=== PATIENT | female | born 1980 | race Caucasian/White ===

== ENCOUNTER 2020-03-01 16:08 | Emergency (ER) | payer SELFPAY ==
[~2020-03-01] VITALS: Ht 152.4 cm; Wt 117.9 kg
[~2020-03-01 16:08] MED LIST: ACET325; ALBU90I INH; ALBU90OI INH; AMIT25; AMOX500 PO; AMOX875 PO; BENZ100A PO; CEPH500 PO; CODGUAEL PO; CYCL10 PO; Cyclobenzaprine5 MG PO; DIAZ5 PO; DOXY100 PO; ETHINYL ESTRADIOL; EXCEDRIN; FAMO20 PO; HYDACE5; HYDACE5 PO; HYDGUAL120 PO; HYDROCODONE CO PO; IBUP800 PO; LEVONORGESTREL; MEDR150I; METPRE4DP PO; NAPR500 PO; NEOCOLOTSU OT; Norco 5-325 Ta1 EACH PO; ORTHOTRICYCLIN; OXAP600 PO; OXYACE5T PO; PENVK500 PO; PRED10 PO; PRED20 PO; PROM25 PO; PROP40; PSEHYDGUAL PO; Prednisone20 MG PO; RXAMOX500 PO; RXHYDACE PO; RXHYDGUAS PO; RXSULTRIDS PO; SULTRIDS PO; TOPI25; TRAACE PO; VERA120ER; [UNRECOGNIZED DRUG - OTHER]
[2020-03-01] MEDS ORDERED: Prednisone20 MG PO (17:33)
== END 2020-03-01 17:40 | disposition home or self-care (01) ==
LOC: ER 16:08
DX: J40 Bronchitis, not specified as acute or chronic (principal); H65.02 Acute serous otitis media, left ear; Z88.5 Allergy status to narcotic agent; Z79.52 Long term (current) use of systemic steroids
CPT/HCPCS: 71046; 99283-25

== ENCOUNTER 2020-04-25 16:31 | Emergency (ER) | payer SELFPAY ==
[~2020-04-25] VITALS: Ht 152.4 cm; Wt 113.4 kg
[2020-04-25 21:24] LABS: BASOPHILS ABSOLUTE AUTO 0.09 K/mm3 (0.00-0.23); BASOPHILS PERCENT AUTO 1 % (0-2); EOSINOPHILS ABSOLUTE AUTO 0.01 K/mm3 (0.00-0.68); EOSINOPHILS PERCENT AUTO 0 % (0-6); Hematocrit 37.5 % (33.0-51.0); Hemoglobin 12.4 g/dL (11.5-16.0); IMMATURE GRAN ABSOLUTE AUTO 0.95 K/mm3 (0.00-0.10); IMMATURE GRAN PERCENT AUTO 5 % (0-1); LYMPHOCYTES ABSOLUTE AUTO 2.15 K/mm3 (0.84-5.20); LYMPHOCYTES PERCENT AUTO 12 % (21-46); MONOCYTES ABSOLUTE AUTO 0.62 K/mm3 (0.16-1.47); MONOCYTES PERCENT AUTO 3 % (4-13); Mean Corpuscular HGB 28.8 pg (26.0-34.0); Mean Corpuscular HGB Conc 33.1 g/dL (31.5-36.5); Mean Corpuscular Volume 87 fL (80-100); Mean Platelet Volume 9.8 fL (9.1-12.4); NEUTROPHILS PERCENT AUTO 79 % (41-73); Platelet Count 275 K/mm3 (150-400); RDW Coefficient Variation 13.6 % (11.7-14.2); RDW Standard Deviation 43.4 fL (35.1-46.3); White Blood Cell Count 18.32 K/mm3 (4.00-11.30)
[2020-04-25 21:40] LABS: BAND PERCENT MAN 5 % (0-8); BASOPHILS PERCENT MAN 0 % (0-2); EOSINOPHILS PERCENT MAN 0 % (0-6); LYMPHOCYTES ABSOLUTE MAN 2.74 K/mm3 (0.84-5.20); LYMPHOCYTES PERCENT MAN 15 % (21-46); MONOCYTES ABSOLUTE MAN 0.54 K/mm3 (0.16-1.47); MONOCYTES PERCENT MAN 3 % (4-13); NEUTROPHILS ABSOLUTE MAN 15.02 K/mm3 (1.96-9.15); SEG NEUTROPHILS PERCENT MAN 77 % (41-73); TOTAL CELLS COUNTED 100
[2020-04-25 21:42] LABS: Alanine Aminotransfer (ALT/SGP 63 U/L (12-78); Albumin, Blood 2.9 g/dL (3.4-5.0); Albumin/Globulin Ratio 0.6 (0.8-1.8); Alk Phos 305 U/L (50-136); Anion Gap 11 mmol/L (6-16); Aspartate Aminotrans (AST/SGOT 69 U/L (12-37); Bilirubin, Total 0.9 mg/dL (0.1-1.0); Blood Urea Nitrogen 7 mg/dL (8-24); Bun/Creatinine Ratio 10.6 (12.0-20.0); CO2, Blood 23 mmol/L (21-32); Calcium, Blood 8.9 mg/dL (8.5-10.1); Chloride, Blood 103 mmol/L (98-108); Creatinine, Blood 0.66 mg/dL (0.40-1.00); Globulin, Blood 4.9 g/dL (2.2-4.0); Glomerular Filtration Rate >60 (60-); Glucose, Blood 102 mg/dL (70-99); Potassium, Blood 3.2 mmol/L (3.5-5.5); Sodium, Blood 137 mmol/L (136-145); Total Protein, Blood 7.8 g/dL (6.4-8.2)
[2020-04-25] MEDS ORDERED: AZIT250 PO (22:01)
== END 2020-04-25 23:15 | disposition home or self-care (01) ==
LOC: ER 16:31
PROVIDERS: Emergency Medicine
DX: H65.23 Chronic serous otitis media, bilateral (principal); R05 Cough; M79.10 Myalgia, unspecified site; R51 Headache; D72.829 Elevated white blood cell count, unspecified; Z20.828 Contact with and (suspected) exposure to other viral communicable diseases; Z88.5 Allergy status to narcotic agent
CPT/HCPCS: 36415; 71045; 80053; 85025; 96361; 96374; 96375; 99283-25; J1200; J1885; J7030

== ENCOUNTER 2020-05-23 12:23 | Emergency (ER) | payer SELFPAY ==
[~2020-05-23] VITALS: Ht 152.4 cm; Wt 113.4 kg
[~2020-05-23 12:23] MED LIST changes: +AZIT250 PO
[2020-05-23] MEDS ORDERED: Robaxin-750750 MG PO (16:00)
== END 2020-05-23 16:15 | disposition home or self-care (01) ==
LOC: ER 12:23
DX: S46.911A Strain of unspecified muscle, fascia and tendon at shoulder and upper arm level, right arm, initial encounter (principal); X58.XXXA Exposure to other specified factors, initial encounter; Z88.5 Allergy status to narcotic agent
CPT/HCPCS: 73030; 99283-25

== ENCOUNTER 2020-05-31 14:34 | Inpatient (IN) | payer SELFPAY ==
[~2020-05-31] VITALS: Ht 152.4 cm; Wt 99.9 kg
[~2020-05-31 14:34] MED LIST changes: +Robaxin-750750 MG PO
[2020-05-31 15:38] LABS: Hematocrit 27.7 % (33.0-51.0); Hemoglobin 9.4 g/dL (11.5-16.0); Mean Corpuscular HGB 27.8 pg (26.0-34.0); Mean Corpuscular HGB Conc 33.9 g/dL (31.5-36.5); Mean Corpuscular Volume 82 fL (80-100); Mean Platelet Volume 12.4 fL (9.1-12.4); Platelet Count 76 K/mm3 (150-400); RDW Coefficient Variation 14.7 % (11.7-14.2); RDW Standard Deviation 44.1 fL (35.1-46.3); Red Blood Cell Count 3.38 M/mm3 (3.80-5.20); White Blood Cell Count 17.38 K/mm3 (4.00-11.30)
[2020-05-31 15:51] LABS: International Normalized Ratio 1.07; Prothrombin Time Results 11.4 Sec (9.7-11.5)
[2020-05-31 15:57] LABS: Albumin, Blood 1.7 g/dL (3.4-5.0); Albumin/Globulin Ratio 0.3 (0.8-1.8); Bilirubin, Total 0.8 mg/dL (0.1-1.0); Calcium, Blood 8.4 mg/dL (8.5-10.1); Creatinine, Blood 1.23 mg/dL (0.40-1.00); Globulin, Blood 5.9 g/dL (2.2-4.0); Potassium, Blood 3.2 mmol/L (3.5-5.5); Total Protein, Blood 7.6 g/dL (6.4-8.2)
[2020-05-31 15:59] LABS: BAND PERCENT MAN 5 % (0-8); BASOPHILS PERCENT MAN 0 % (0-2); EOSINOPHILS PERCENT MAN 0 % (0-6); LYMPHOCYTES PERCENT MAN 6 % (21-46); MONOCYTES PERCENT MAN 6 % (4-13); SEG NEUTROPHILS PERCENT MAN 83 % (41-73); TOTAL CELLS COUNTED 100
[2020-05-31 16:00] LABS: EOSINOPHILS PERCENT AUTO 0 % (0-6); IMMATURE GRAN ABSOLUTE AUTO 0.64 K/mm3 (0.00-0.10); IMMATURE GRAN PERCENT AUTO 4 % (0-1); NEUTROPHILS ABSOLUTE AUTO 14.71 K/mm3 (1.96-9.15); NEUTROPHILS PERCENT AUTO 85 % (41-73)
[2020-05-31 23:48] LABS: Influenza A Negative (NEGATIVE); Influenza B Negative (NEGATIVE)
[2020-06-01 03:01] LABS: Hematocrit 24.9 % (33.0-51.0); Hemoglobin 8.1 g/dL (11.5-16.0); Mean Corpuscular HGB 27.5 pg (26.0-34.0); Mean Corpuscular HGB Conc 32.5 g/dL (31.5-36.5); Mean Corpuscular Volume 84 fL (80-100); Platelet Count 56 K/mm3 (150-400); RDW Coefficient Variation 15.2 % (11.7-14.2); RDW Standard Deviation 47.5 fL (35.1-46.3); Red Blood Cell Count 2.95 M/mm3 (3.80-5.20); White Blood Cell Count 13.04 K/mm3 (4.00-11.30)
--- NOTE | 2020-06-01 03:21 | NUR ---
PT SHOWED DIZZINESS WHILE AMBULATING TO BATHROOM, NURSE NOTIFIED.
[2020-06-01 03:27] LABS: BAND PERCENT MAN 16 % (0-8); BASOPHILS PERCENT MAN 0 % (0-2); EOSINOPHILS ABSOLUTE MAN 0.13 K/mm3 (0.00-0.68); EOSINOPHILS PERCENT MAN 1 % (0-6); LYMPHOCYTES ABSOLUTE MAN 0.39 K/mm3 (0.84-5.20); LYMPHOCYTES PERCENT MAN 3 % (21-46); METAMYELOCYTE ABSOLUTE MAN 0.13 K/mm3 (0.00-0.00); METAMYELOCYTE PERCENT MAN 1 % (0-0); MONOCYTES ABSOLUTE MAN 0.13 K/mm3 (0.16-1.47); MONOCYTES PERCENT MAN 1 % (4-13); NEUTROPHILS ABSOLUTE MAN 12.25 K/mm3 (1.96-9.15); SEG NEUTROPHILS PERCENT MAN 78 % (41-73); TOTAL CELLS COUNTED 100
[2020-06-01 03:43] LABS: Albumin, Blood 1.4 g/dL (3.4-5.0); Albumin/Globulin Ratio 0.3 (0.8-1.8); Bilirubin, Total 0.9 mg/dL (0.1-1.0); Bun/Creatinine Ratio 20.7 (12.0-20.0); Calcium, Blood 7.5 mg/dL (8.5-10.1); Creatinine, Blood 1.69 mg/dL (0.40-1.00); Globulin, Blood 4.7 g/dL (2.2-4.0); Total Protein, Blood 6.1 g/dL (6.4-8.2)
[2020-06-01 03:51] LABS: Percent Saturation 13.4 % (15.0-50.0)
[2020-06-01 05:03] LABS: Adenovirus Not Detected (NOT DETECT); Bordetella pertussis Not Detected (NOT DETECT); Chlamydophila pneumoniae Not Detected (NOT DETECT); Coronavirus 229E Not Detected (NOT DETECT); Coronavirus HKU1 Not Detected (NOT DETECT); Coronavirus NL63 Not Detected (NOT DETECT); Coronavirus OC43 Not Detected (NOT DETECT); Human Metapneumovirus Not Detected (NOT DETECT); Human Rhinovirus/Enterovirus Not Detected (NOT DETECT); Influenza A/2009-H1 Not Detected (NOT DETECT); Influenza A/H1 Not Detected (NOT DETECT); Influenza A/H3 Not Detected (NOT DETECT); Influenza B Not Detected (NOT DETECT); Mycoplasma pneumoniae Not Detected (NOT DETECT); Parainfluenza Virus 1 Not Detected (NOT DETECT); Parainfluenza Virus 2 Not Detected (NOT DETECT); Parainfluenza Virus 3 Not Detected (NOT DETECT); Parainfluenza Virus 4 Not Detected (NOT DETECT); Respiratory Syncytial Virus Not Detected (NOT DETECT); SARS-Cov-2 (COVID-19), BioFire Not Detected (NOT DETECT)
--- NOTE | 2020-06-01 05:48 | NUR ---
PCU ADMIT / SHIFT SUMMARY PT BROUGHT TO PCU-08 BY KENDRA FROM ER @ APPROX 0200, ACCOMPANIED BY PT SPOUSE. PT A&O X4, ABLE TO STAND & WEAKLY PIVOT TRANSFER FROM [facility] TO [facility] BED. PT VSS. SPO2 > 92% ON RA. MONITOR SHOWING ST, HR 100-110's. PT SWEATING PROFUSELY. ORAL TEMP WNL. PT C/O NOT FEELING WELL & PT SPOUSE REPORTS PT HASN'T EATEN ANYTHING IN 14 DAYS EXCEPT A COUPLE BITES OF SOUP 2 DAYS AGO. PT ARRIVED TO UNIT W/ XIE CATHETER INSERTED IN ER. ER NURSE REPORTS UA NOT COLLECTED & SENT D/T NOT ENOUGH URINE OUTPUT IN BAG. XIE CATHETER LINE NOTED TO ONLY HAVE DROPLETS, W/ NOT ENOUGH TO COLLECT. XIE CATH CLAMPED CLOSE TO PT FOR SPECIMEN COLLECTION W/ NO SUCCESS. PT C/O PAIN FROM XIE POSITIONING. XIE CATH REMOVED D/T PT COMPLAINT & NO COLLECTION OF URINE. PT UNSURE OF URINE OUTPUT AT HOME. PT REPORTS "I HAVEN'T BEEN DRINKING MUCH. I THINK I PEED BEFORE COMING HERE." PT DENIES NEED TO PEE, BUT ASSISTED TO BEDSIDE COMMODE FOR URINATION ATTEMPT. PT REPORTING "I FEEL LIKE I MAYBE COULD, BUT IT JUST WON'T COME." PT UNSUCCESSFUL. BLADDER SCAN DONE, SHOWING < 150 MLS. NS GTT INFUSING PER ORDERS. WILL CONTINUE TO MONITOR & PROVIDE CARE UNTIL REPORT OFF TO DAY SHIFT RN.
--- NOTE | 2020-06-01 06:21 | NUR ---
POSITIVE BLOOD CX's / CALL TO MD CALL TO MD PACHECO TO REPORT (+) BLOOD CX RESULTS X2. MD W/ NEW ORDERS FOR IV VANCO & PHARMACY TO MANAGE.
--- NOTE | 2020-06-01 09:28 | NUR ---
PLACED SCD'S TO BLE. REMOVED PIV FROM LUE PATIENT COMPLAINED OF TENDERNESS UPON FLUSHING. PATIENT DENIES PAIN. SHE IS RESTING IN BED. WILL CONTINUE TO MONITOR AND PROVIDE CARE NEEDED.
--- NOTE | 2020-06-01 13:07 | NUR ---
NO CHANGES ON PATIENT NOTED FROM THIS MORNINGS ASSESSMENT. PATIENT CONTINUES TO REST IN BED. STOOL SPECIMEN COLLECTED PER ORDERS AND SENT TO LAB. WILL CONTINUE TO MONITOR AND PROVIDE CARE NEEDED.
[2020-06-01 13:41] LABS: Stool Occult Blood Guaiac 1 Neg (Neg)
--- NOTE | 2020-06-01 15:40 | NUR ---
PATIENT NOTED TO HAVE NO NEW CHANGES FROM LAST ASSESSMENT. UA COLLECTED AND SENT TO LAB. IS AT BEDSIDE. WILL CONTINUE TO MONITOR AND PROVIDE CARE NEEDED.
--- NOTE | 2020-06-01 17:26 | NUR ---
PATIENT APPEARS THOUGH SHE IS FEELING SLIGHTLY BETTER THAN IN THE BEGINNING OF THIS SHIFT. VITALS HAVE BEEN STABLE. PATIENT CONTINUES ON IV ABX WITHOUT S/SX OF ADVERSE REACTIONS NOTED OR REPORTED. CALLS APPROPRIATELY FOR STAFF ASSIST NEEDED. PLEASANT AND COOPERATIVE WITH STAFF AND CARE PROVIDED. STILL WITH MINIMAL URINE OUTPUT. PATIENT RECEIVING IV FLUIDS PER ORDERS AND IS BEING REMINDED TO TAKE PO FLUIDS WELL. PATIENT IN ROOM RESTING AT THIS TIME. WILL CONTINUE TO MONITOR AND PROVIDE CARE NEEDED.
[2020-06-01 17:32] LABS: Source, Urine Voided
[2020-06-01 17:36] LABS: Appearance, Urine Cloudy (Clear); Bilirubin, Urine Neg (Neg); Blood, Urine 5+ (Neg); Color, Urine Yellow (P-Yellow); Glucose Qualitative, Urine Neg (Neg); Ketones, Urine 1+ (Neg); Leukocyte Esterase, Urine 1+ (Neg); Nitrite, Urine Neg (Neg); Protein, Urine 3+ (Neg); Specific Gravity, Urine 1.015 (1.003-1.022); Urobilinogen, Urine 1+ (Normal)
[2020-06-01 18:29] LABS: Squamous Epithelial Cells Mod /hpf (Few)
[2020-06-01 18:30] LABS: Amorphous Light (0-Heavy); Bacteria Mod /hpf
--- NOTE | 2020-06-01 19:09 | NUR ---
BEDSIDE REPORT GIVEN TO BESSY RN @ [id number]. PATIENT IS DOING WELL AND HAS NO NEEDS AT THIS TIME. BESSY TO ASSUME PATIENTS CARE AT THIS TIME.
[2020-06-02 04:01] LABS: BASOPHILS ABSOLUTE AUTO 0.06 K/mm3 (0.00-0.23); BASOPHILS PERCENT AUTO 0 % (0-2); Hematocrit 26.1 % (33.0-51.0); Hemoglobin 8.6 g/dL (11.5-16.0); LYMPHOCYTES ABSOLUTE AUTO 1.83 K/mm3 (0.84-5.20); LYMPHOCYTES PERCENT AUTO 13 % (21-46); MONOCYTES ABSOLUTE AUTO 1.23 K/mm3 (0.16-1.47); MONOCYTES PERCENT AUTO 9 % (4-13); Mean Corpuscular HGB 27.5 pg (26.0-34.0); Mean Corpuscular Volume 83 fL (80-100); RDW Coefficient Variation 15.7 % (11.7-14.2); RDW Standard Deviation 47.1 fL (35.1-46.3); Red Blood Cell Count 3.13 M/mm3 (3.80-5.20); White Blood Cell Count 14.36 K/mm3 (4.00-11.30)
[2020-06-02 04:07] LABS: EOSINOPHILS ABSOLUTE AUTO 0.05 K/mm3 (0.00-0.68); EOSINOPHILS PERCENT AUTO 0 % (0-6); IMMATURE GRAN ABSOLUTE AUTO 0.54 K/mm3 (0.00-0.10); IMMATURE GRAN PERCENT AUTO 4 % (0-1); Mean Platelet Volume 13.8 fL (9.1-12.4); NEUTROPHILS ABSOLUTE AUTO 10.65 K/mm3 (1.96-9.15); NEUTROPHILS PERCENT AUTO 74 % (41-73)
[2020-06-02 04:08] LABS: Platelet Count 39 K/mm3 (150-400)
[2020-06-02 04:21] LABS: Albumin, Blood 1.3 g/dL (3.4-5.0); Albumin/Globulin Ratio 0.3 (0.8-1.8); Bilirubin, Total 0.5 mg/dL (0.1-1.0); Bun/Creatinine Ratio 21.2 (12.0-20.0); Calcium, Blood 7.6 mg/dL (8.5-10.1); Creatinine, Blood 1.89 mg/dL (0.40-1.00); Globulin, Blood 5.1 g/dL (2.2-4.0); Total Protein, Blood 6.4 g/dL (6.4-8.2)
[2020-06-02 04:23] LABS: BAND PERCENT MAN 5 % (0-8); BASOPHILS ABSOLUTE MAN 0.14 K/mm3 (0.00-0.23); BASOPHILS PERCENT MAN 1 % (0-2); EOSINOPHILS PERCENT MAN 0 % (0-6); LYMPHOCYTES ABSOLUTE MAN 1.43 K/mm3 (0.84-5.20); LYMPHOCYTES PERCENT MAN 10 % (21-46); METAMYELOCYTE ABSOLUTE MAN 0.14 K/mm3 (0.00-0.00); METAMYELOCYTE PERCENT MAN 1 % (0-0); MONOCYTES ABSOLUTE MAN 0.28 K/mm3 (0.16-1.47); MONOCYTES PERCENT MAN 2 % (4-13); NEUTROPHILS ABSOLUTE MAN 12.34 K/mm3 (1.96-9.15); SEG NEUTROPHILS PERCENT MAN 81 % (41-73); TOTAL CELLS COUNTED 100
--- NOTE | 2020-06-02 06:30 | NUR ---
SHIFT SUMMARY. ASSUMED CARE AT 1900. JUST GETTING OUT OF SHOWER W/ HUSBANDS HELP. VERY LITTLE MOTIVATION TO DO THINGS FOR SELF WHILE HERE TO DO THING FOR HER. SCDS ON AND TOLERATED. ENC TO DEEP BREATHE AND LUNGS CLEAR. SR. DENIES PAIN . SOME RIB SORENESS REPORTED FROM DAYS OF COUGHING. REPORTS SHE THIS BRONCHITIS TWICE A YEAR. WITH TALKING PROMOTES MUCH COUGHING AND VERY BARKY WHEEZY CROUPY COUGH. VERY HOARSE TO TALK . AFTER 2099 COUGH MED SLEPT VERY WELL AND VOIDED X ONE IN BR . PER TECH. MORE COUGHING WHEN AWAKENED FOR LAB . PLACED CALL TO MD WHEN LAB RESULTS REPORTED AND ORDERS LEFT . REPORTED COUGHING AND MD DID NOT ORDER COUGH MED. PLACED CALL LATER AND COUGH ERASMO ORDER AND LATER REALIZED ALLERGY TO CODEINE. WHEN QUESTIONED MANY TIMES ABOUT THE NEED TO VOID AND SHE CONT TO SAY NO . DECIDED TO DO BLADDER SCAN SINCE UNSURE OF URINE OUT PUT UNMEASURED X1. 180 ML IN SCAN. THEN REALIZED SHE HAD A BRIEF ON, AND SHE HAD NEVER ASKED FOR IT TO BE CHANGED, MORE VOIDING UNMEASURED. VERY HOARSE NOW AND REPORT TO PRAVIN COSTELLO RN ABOUT CODEINE ALLERGY AND NEED TO GET ANOTHER ORDER FROM DAY MD. LUNGS REMAIN CLEAR. THIS SHIFT..
--- NOTE | 2020-06-02 08:40 | NUR ---
pt layingn in bed awake a/ox3, coopertive with care, follows commands well, states she got a little sleep last night, denies pain, is asking for something for her cough, she has a harsh cough reports bringing up clear sputum, hrr, tele in place running sr per montior, see strip, no edema noted, ppp+2, cap refill <3sec, vs stable, afebrile, iv site to rfa is clear and patent, btx4, abd flat soft nontender, voids without diff, has attends in place for stress incont, skin c/w/d, la tiwari, call light in reach.
--- NOTE | 2020-06-02 12:04 | NUR ---
Echocardiogram completed.
--- NOTE | 2020-06-02 17:55 | NUR ---
pt is having a picc line placed, she was started on gabapenten for her cough, no other changes this shift. call light in reach.
--- NOTE | 2020-06-02 19:15 | NUR ---
ASSUMED CARE OF PT, REPORT RECEIVED FROM HARRY MORENO. PT SITTING UP IN BED, TALKING ON CELLPHONE. NO ACUTE DISTRESS OBSERVED, PT DOES HAVE SHALLOW BREATHING. SATS 95% ON RA. CALL LIGHT WITHIN REACH, WILL CONTINUE TO MONITOR
--- NOTE | 2020-06-03 01:00 | NUR ---
DAYLIGHT SAVINGS TIME IN EFFECT, TIME CHANGE BACK 1 HR
[2020-06-03 01:08] LABS: U Amphetamine Screen Not Detected; U Barbituate Screen Not Detected; U Benzodiazapine Screen Not Detected; U Buprenorphine Screen Not Detected; U Cannabinoids Screen Not Detected; U Cocaine Screen Not Detected; U Methadone Screen Not Detected; U Methamphetamine Screen Not Detected; U Opiates Screen Not Detected; U Oxycodone Screen Not Detected; U Phencyclidine Screen Not Detected; U Propoxyphene Screen Not Detected
[2020-06-03 07:21] LABS: BASOPHILS ABSOLUTE AUTO 0.02 K/mm3 (0.00-0.23); BASOPHILS PERCENT AUTO 0 % (0-2); EOSINOPHILS ABSOLUTE AUTO 0.04 K/mm3 (0.00-0.68); EOSINOPHILS PERCENT AUTO 0 % (0-6); Hematocrit 21.9 % (33.0-51.0); Hemoglobin 7.1 g/dL (11.5-16.0); IMMATURE GRAN ABSOLUTE AUTO 0.41 K/mm3 (0.00-0.10); IMMATURE GRAN PERCENT AUTO 3 % (0-1); LYMPHOCYTES PERCENT AUTO 13 % (21-46); MONOCYTES ABSOLUTE AUTO 0.74 K/mm3 (0.16-1.47); MONOCYTES PERCENT AUTO 6 % (4-13); Mean Corpuscular HGB 27.5 pg (26.0-34.0); Mean Corpuscular HGB Conc 32.4 g/dL (31.5-36.5); Mean Corpuscular Volume 85 fL (80-100); Mean Platelet Volume 12.6 fL (9.1-12.4); NEUTROPHILS ABSOLUTE AUTO 9.96 K/mm3 (1.96-9.15); NEUTROPHILS PERCENT AUTO 78 % (41-73); RDW Coefficient Variation 15.9 % (11.7-14.2); RDW Standard Deviation 48.8 fL (35.1-46.3); Red Blood Cell Count 2.58 M/mm3 (3.80-5.20); White Blood Cell Count 12.77 K/mm3 (4.00-11.30)
[2020-06-03 07:25] LABS: Platelet Count 50 K/mm3 (150-400)
[2020-06-03 07:44] LABS: Magnesium, Blood 2.2 mg/dL (1.6-2.4)
[2020-06-03 07:45] LABS: Alanine Aminotransfer (ALT/SGP 16 U/L (12-78); Albumin, Blood 1.9 g/dL (3.4-5.0); Albumin/Globulin Ratio 0.4 (0.8-1.8); Alk Phos 130 U/L (50-136); Anion Gap 8 mmol/L (6-16); Aspartate Aminotrans (AST/SGOT 40 U/L (12-37); Bilirubin, Total 0.7 mg/dL (0.1-1.0); Blood Urea Nitrogen 27 mg/dL (8-24); Bun/Creatinine Ratio 21.3 (12.0-20.0); CO2, Blood 20 mmol/L (21-32); Calcium, Blood 7.7 mg/dL (8.5-10.1); Chloride, Blood 110 mmol/L (98-108); Creatinine, Blood 1.27 mg/dL (0.40-1.00); Globulin, Blood 4.8 g/dL (2.2-4.0); Glomerular Filtration Rate 50 (60-); Glucose, Blood 86 mg/dL (70-99); Phosphorus, Blood 2.9 mg/dL (2.5-4.9); Potassium, Blood 3.6 mmol/L (3.5-5.5); Sodium, Blood 138 mmol/L (136-145); Total Protein, Blood 6.7 g/dL (6.4-8.2); Troponin I <0.015 ng/mL (0.000-0.040)
--- NOTE | 2020-06-03 17:10 | NUR ---
SHIFT SUMMARY PT A&Ox4; CALM AND COOPERATIVE WITH CARE. PT RESTING IN BED DURING SHIFT. UP TO BATHROOM WITH 1 PERSON ASSIST. PT REPORT PERALTA THIS EVENING; MEDICATED WITH TYLENOL x1. PT REPORTS SOB AT REST; HARSH COUGH NOTED; SPO2 >92%, TACHPNIC AT TIMES. PT DENIES CHEST PAIN, NASUEA AND DIZZINESS. POOR APPETITE NOTED. VSS. NO OTHER ACUTE CHANGES NOTED. WILL CONTINUE TO MONITOR UNTIL REPORT GIVEN TO ONCOMING RN.
[2020-06-04 04:34] LABS: Hematocrit 21.9 % (33.0-51.0); Hemoglobin 6.9 g/dL (11.5-16.0); Mean Corpuscular HGB Conc 31.5 g/dL (31.5-36.5); Mean Corpuscular Volume 86 fL (80-100); NRBC ABSOLUTE 0.02 K/mm3 (0.00-0.02); NRBC Auto 0.1 /100 WBC (0.0-0.2); Platelet Count 65 K/mm3 (150-400); RDW Coefficient Variation 15.9 % (11.7-14.2); RDW Standard Deviation 49.8 fL (35.1-46.3); Red Blood Cell Count 2.56 M/mm3 (3.80-5.20); White Blood Cell Count 17.27 K/mm3 (4.00-11.30)
[2020-06-04 04:48] LABS: Albumin, Blood 1.8 g/dL (3.4-5.0); Anion Gap 8 mmol/L (6-16); Blood Urea Nitrogen 20 mg/dL (8-24); Bun/Creatinine Ratio 18.5 (12.0-20.0); CO2, Blood 20 mmol/L (21-32); Calcium, Blood 7.5 mg/dL (8.5-10.1); Chloride, Blood 110 mmol/L (98-108); Creatinine, Blood 1.08 mg/dL (0.40-1.00); Glomerular Filtration Rate >60 (60-); Glucose, Blood 96 mg/dL (70-99); Phosphorus, Blood 3.9 mg/dL (2.5-4.9); Potassium, Blood 3.4 mmol/L (3.5-5.5); Sodium, Blood 138 mmol/L (136-145)
--- NOTE | 2020-06-04 05:58 | NUR ---
CALLED MD AND LEFT MESSAGE REGARDING HGB 6.9, HCT 21.9. NO CALL BACK YET
--- NOTE | 2020-06-04 07:44 | NUR ---
Patient gave this nursing informatics clinical analyst permission to assist in her care on 06/04/2020.
[2020-06-05 04:33] LABS: BASOPHILS ABSOLUTE AUTO 0.06 K/mm3 (0.00-0.23); BASOPHILS PERCENT AUTO 0 % (0-2); EOSINOPHILS ABSOLUTE AUTO 0.09 K/mm3 (0.00-0.68); EOSINOPHILS PERCENT AUTO 0 % (0-6); Hematocrit 24.7 % (33.0-51.0); IMMATURE GRAN ABSOLUTE AUTO 1.65 K/mm3 (0.00-0.10); IMMATURE GRAN PERCENT AUTO 8 % (0-1); LYMPHOCYTES ABSOLUTE AUTO 2.32 K/mm3 (0.84-5.20); LYMPHOCYTES PERCENT AUTO 11 % (21-46); MONOCYTES ABSOLUTE AUTO 1.06 K/mm3 (0.16-1.47); MONOCYTES PERCENT AUTO 5 % (4-13); Mean Corpuscular HGB Conc 32.4 g/dL (31.5-36.5); Mean Corpuscular Volume 86 fL (80-100); Mean Platelet Volume 11.4 fL (9.1-12.4); NEUTROPHILS ABSOLUTE AUTO 15.23 K/mm3 (1.96-9.15); NEUTROPHILS PERCENT AUTO 75 % (41-73); NRBC ABSOLUTE 0.03 K/mm3 (0.00-0.02); NRBC Auto 0.1 /100 WBC (0.0-0.2); Platelet Count 69 K/mm3 (150-400); RDW Coefficient Variation 15.3 % (11.7-14.2); RDW Standard Deviation 48.2 fL (35.1-46.3); Red Blood Cell Count 2.86 M/mm3 (3.80-5.20); White Blood Cell Count 20.41 K/mm3 (4.00-11.30)
[2020-06-05 04:46] LABS: Albumin, Blood 1.8 g/dL (3.4-5.0); Anion Gap 8 mmol/L (6-16); Blood Urea Nitrogen 18 mg/dL (8-24); CO2, Blood 22 mmol/L (21-32); Calcium, Blood 7.9 mg/dL (8.5-10.1); Chloride, Blood 110 mmol/L (98-108); Creatinine, Blood 1.06 mg/dL (0.40-1.00); Glomerular Filtration Rate >60 (60-); Glucose, Blood 99 mg/dL (70-99); Phosphorus, Blood 4.5 mg/dL (2.5-4.9); Potassium, Blood 3.2 mmol/L (3.5-5.5); Sodium, Blood 140 mmol/L (136-145)
[2020-06-05 05:03] LABS: BAND PERCENT MAN 4 % (0-8); BASOPHILS PERCENT MAN 1 % (0-2); EOSINOPHILS PERCENT MAN 0 % (0-6); LYMPHOCYTES ABSOLUTE MAN 2.24 K/mm3 (0.84-5.20); LYMPHOCYTES PERCENT MAN 11 % (21-46); MONOCYTES ABSOLUTE MAN 1.02 K/mm3 (0.16-1.47); MONOCYTES PERCENT MAN 5 % (4-13); NEUTROPHILS ABSOLUTE MAN 16.94 K/mm3 (1.96-9.15); SEG NEUTROPHILS PERCENT MAN 79 % (41-73); TOTAL CELLS COUNTED 100
--- NOTE | 2020-06-05 07:44 | NUR ---
SHIFT SUMMARY PT WAS FEBRILE AT START OF SHIFT, GAVE PRN ACETAMINOPHEN, REMOVED COVERS, AND COOLED ROOM. PT TEMP CAME DOWN WNL WITHIN AN HOUR. PT WAS SITTING IN CHAIR MOST OF THE NIGHT, MOVED TO BED AROUND 0300. PT STATED BEING MUCH MORE COMFORTABLE THAN PERVIOUS SHIFTS. FREQURNT COUGHING WHEN AWAKE, NONPRODUCTIVE. PAIN IN L AXILLARY WITH DEEP BREATHING, PT STATES FROM COUGHING SO MUCH. WAS ON 2LPM NC WITH O2 SATS IN THE HIGH 90'S T/O THE NIGHT WITH RAPID SHALLOW BREATHS. PT WAS ABLE TO AMBULATE TO TOILET W/O DIFFICULTIES. BP STABLE 120'S SYSTOLIC, HR 90'S. PT AWAKE IN BED, WILL CONTINUE TO MONITOR UNTIL SHIFT CHANGE.
--- NOTE | 2020-06-05 09:53 | NUR ---
ASSUME CARE: PT ALERT AND AWAKE IN BED THIS MORNING UPON RECEIVING REPORT. PT CONVERSIVE WITH FLAT AFFECT, NO COMPLAINS AT THAT TIME. PT HAS FREQUENT HARSH NON PRODUCTIVE COUGH OFFERED PRM COUGH MEDICINE BUT REFUSED HAD SCHEDULED MUCINEX THIS AM. PT ON 2L OF O2 VIA NASAL CANNULA SATS REMAINED ABOVE 95% PT REMAINS TACHYPNEIC RATE ABOVE 30'S SHALLOW BREATHING. PT ON IV ABO, POTASSIUM BAG CURRENTLY INFUSING. NO OTHER ISSUES OF THIS TIME. PT ABLE TO MAKE NEEDS KNOWN, WILL MONITOR
--- NOTE | 2020-06-05 15:05 | NUR ---
Pt. is sitting in a chair resting, family member in the room reports pt . is doing much better .
--- NOTE | 2020-06-05 17:26 | NUR ---
PT SUMMARY: SEE PREVIOUS NOTE. NO ACUTE CHANGE FOR THE SHIFT, PT WITH PERSISTENT COUGH STARTED ON ROBITUSSIN COUGH SYRUP WAS ALSO C/O RIGHT SIDE CHEST PAIN WORSENS WITH COUGHING 02/09 TYLENOL WAS GIVEN PAIN WENT DOWN TO 09/12, DENIES ANY PAIN AT THIS TIME, DR WORLEY IS AWARE. REMAINS ON IV ABO, VITALS HAS BEE STABLE, PT HAS BEEN UP IN THE RECLINER MOST OF THE SHIFT, USES THE BATHROOM ASSISTED FOT TOILETING, AT BEDSIDE MOST OG THE SHIFT. NO OTHER ISSUES AT THIS TIME, CALL LIGHTS IN REACH, WILL REPORT TO ONCOMING SHIFT.
[2020-06-06 04:04] LABS: BASOPHILS ABSOLUTE AUTO 0.06 K/mm3 (0.00-0.23); BASOPHILS PERCENT AUTO 0 % (0-2); EOSINOPHILS ABSOLUTE AUTO 0.13 K/mm3 (0.00-0.68); EOSINOPHILS PERCENT AUTO 1 % (0-6); IMMATURE GRAN ABSOLUTE AUTO 1.37 K/mm3 (0.00-0.10); IMMATURE GRAN PERCENT AUTO 7 % (0-1); LYMPHOCYTES ABSOLUTE AUTO 1.64 K/mm3 (0.84-5.20); LYMPHOCYTES PERCENT AUTO 8 % (21-46); MONOCYTES ABSOLUTE AUTO 1.01 K/mm3 (0.16-1.47); MONOCYTES PERCENT AUTO 5 % (4-13); Mean Corpuscular HGB 28.1 pg (26.0-34.0); Mean Corpuscular HGB Conc 31.8 g/dL (31.5-36.5); Mean Corpuscular Volume 89 fL (80-100); Mean Platelet Volume 11.9 fL (9.1-12.4); NEUTROPHILS ABSOLUTE AUTO 15.57 K/mm3 (1.96-9.15); NEUTROPHILS PERCENT AUTO 79 % (41-73); Platelet Count 85 K/mm3 (150-400); RDW Coefficient Variation 15.7 % (11.7-14.2); RDW Standard Deviation 50.2 fL (35.1-46.3); Red Blood Cell Count 1.92 M/mm3 (3.80-5.20); White Blood Cell Count 19.78 K/mm3 (4.00-11.30)
[2020-06-06 04:14] LABS: Hemoglobin 5.4 g/dL (11.5-16.0)
[2020-06-06 04:19] LABS: Albumin, Blood 1.7 g/dL (3.4-5.0); Anion Gap 8 mmol/L (6-16); Blood Urea Nitrogen 14 mg/dL (8-24); Bun/Creatinine Ratio 15.9 (12.0-20.0); CO2, Blood 22 mmol/L (21-32); Calcium, Blood 7.6 mg/dL (8.5-10.1); Chloride, Blood 111 mmol/L (98-108); Creatinine, Blood 0.88 mg/dL (0.40-1.00); Glomerular Filtration Rate >60 (60-); Glucose, Blood 93 mg/dL (70-99); Phosphorus, Blood 3.6 mg/dL (2.5-4.9); Potassium, Blood 3.4 mmol/L (3.5-5.5); Sodium, Blood 141 mmol/L (136-145)
[2020-06-06 04:24] LABS: BAND PERCENT MAN 4 % (0-8); BASOPHILS PERCENT MAN 0 % (0-2); EOSINOPHILS PERCENT MAN 0 % (0-6); LYMPHOCYTES ABSOLUTE MAN 1.38 K/mm3 (0.84-5.20); LYMPHOCYTES PERCENT MAN 7 % (21-46); METAMYELOCYTE ABSOLUTE MAN 0.19 K/mm3 (0.00-0.00); METAMYELOCYTE PERCENT MAN 1 % (0-0); MONOCYTES ABSOLUTE MAN 0.59 K/mm3 (0.16-1.47); MONOCYTES PERCENT MAN 3 % (4-13); SEG NEUTROPHILS PERCENT MAN 85 % (41-73); TOTAL CELLS COUNTED 100
--- NOTE | 2020-06-06 06:15 | NUR ---
SUMMARY PT ALERT AND ORIENTED. COUGH PRESENT THROUGHOUT NIGHT, PT REFUSED ALL COUGH MEDICATIONS BECAUSE SHE STATED THEY DID NOT WORK. DR CALLED FOR DIFFERENT COUGH MEDICATION, MEDICATED SEE EMAR. PT COMPLAINED OF SOB AT TIMES, 02 SATS >95%. CRITICAL LAB VALUES RECIEVED AND BLOOD BEING TRANSFUSED. PT UP IN CHAIR FOR COMFORT. CALL LIGHT IN REACH, WILL CONTINUE TO MONITOR.
--- NOTE | 2020-06-06 07:44 | NUR ---
ASSUME CARE: PT UP IN THE RECLINER DURING REPORT PT CURRENTLY RECEIVING 1PRBC HGB IS AT 5.4 THIS MORNING. PT DENIES ANY PAIN BUT IS COMPLAINING OF FEELING VERY WEAK, STILL TACHYPNEIC WITH COUGH. VITALS HRR ST 102, BP SYSTOLIC 115, SATS ABOVE 98% ON 2L OF O2, TEMP 99.3. PT CURRENTLY EATING BREAKFAST AT THIS TIME, WILL MONITOR PT
--- NOTE | 2020-06-06 13:25 | NUR ---
Pt. is in bed resting and she is doing much better encouragee pt.
[2020-06-06 13:28] LABS: Hematocrit 28.8 % (33.0-51.0); Hemoglobin 9.4 g/dL (11.5-16.0)
[2020-06-06 14:58] LABS: Stool Occult Bld Immuno 1 Negative (NEGATIVE)
--- NOTE | 2020-06-06 17:07 | NUR ---
PT SUMMARY: TOTAL OF 2PRBC TRANSFUSED TODAY HGB WENT UP TO 9.4, ABD CT SCAN DONE SHOWS NO SIGNS OG BLEEDING BUT SHOWS SEPTIC EMBOLI DR WORLEY IS AWARE WAS DR BE TO FOLLOW-UP WITH PT TOMORROW TO CONTINUE TO MONITOR PT AT THIS TIME PER DR WORLEY. VITALS HRR ST 100'S INCREASES UP TO 120 WITH EXERTION, BP SYSTOLIC 120'S, SATS ABOVE 95% ON RA, TEMP 99.7, PT DENIES ANY PAIN, STILL IS TACHYPNEIC AND SOB WITH EXERTION. GI IS CONSULTED FOR SEVERE ANEMIA, STOOL OCCULT CAME BACK NEGATIVE. AWARE OF THE PT'S CURRENT CONDITION AND THE PLAN. PT CONTINUES ON IV OXACILLIN. LASIX 20MG IV GIVEN X1 DOSE PT HAD 900MLS URINE OUT. PT HAS BEEN UP IN THE RECLINER MOST OF THE SHIFT, POOR APPETITE TODAY. ABLE TO MAKE NEEDS KNOWN, WILL REPORT TO ONCOMING SHIFT
--- NOTE | 2020-06-06 23:40 | NUR ---
COVID TEST CANCELLED PRE-PROCEDURE COVID SWAB ORDERED BY DR. ALTMAN. PT HAS 2 NEGATIVE COVID SWABS DURING THIS ADMISSION. PER [place] (SURGICAL CLINICAL COORDINATOR), ADDITIONAL SWAB IS NOT NECESSARY AT THIS TIME SINCE PT HAS REMAINED IN THE HOSPITAL SINCE 2 NEGATIVE SWABS.
[2020-06-07 04:38] LABS: BASOPHILS ABSOLUTE AUTO 0.06 K/mm3 (0.00-0.23); BASOPHILS PERCENT AUTO 0 % (0-2); EOSINOPHILS ABSOLUTE AUTO 0.08 K/mm3 (0.00-0.68); EOSINOPHILS PERCENT AUTO 0 % (0-6); Hematocrit 20.6 % (33.0-51.0); Hemoglobin 6.7 g/dL (11.5-16.0); IMMATURE GRAN PERCENT AUTO 4 % (0-1); LYMPHOCYTES ABSOLUTE AUTO 1.79 K/mm3 (0.84-5.20); LYMPHOCYTES PERCENT AUTO 10 % (21-46); MONOCYTES ABSOLUTE AUTO 0.83 K/mm3 (0.16-1.47); MONOCYTES PERCENT AUTO 4 % (4-13); Mean Corpuscular HGB 28.8 pg (26.0-34.0); Mean Corpuscular HGB Conc 32.5 g/dL (31.5-36.5); Mean Corpuscular Volume 88 fL (80-100); NEUTROPHILS ABSOLUTE AUTO 15.31 K/mm3 (1.96-9.15); NEUTROPHILS PERCENT AUTO 81 % (41-73); Platelet Count 119 K/mm3 (150-400); RDW Coefficient Variation 15.9 % (11.7-14.2); RDW Standard Deviation 49.8 fL (35.1-46.3); Red Blood Cell Count 2.33 M/mm3 (3.80-5.20); White Blood Cell Count 18.87 K/mm3 (4.00-11.30)
[2020-06-07 04:44] LABS: Albumin, Blood 1.7 g/dL (3.4-5.0); Anion Gap 7 mmol/L (6-16); Blood Urea Nitrogen 12 mg/dL (8-24); Bun/Creatinine Ratio 13.3 (12.0-20.0); CO2, Blood 22 mmol/L (21-32); Calcium, Blood 8.1 mg/dL (8.5-10.1); Chloride, Blood 114 mmol/L (98-108); Glomerular Filtration Rate >60 (60-); Glucose, Blood 89 mg/dL (70-99); Phosphorus, Blood 3.7 mg/dL (2.5-4.9); Potassium, Blood 3.3 mmol/L (3.5-5.5); Sodium, Blood 143 mmol/L (136-145)
--- NOTE | 2020-06-07 06:31 | NUR ---
SHIFT SUMMARY PT WAS AWAKE MOST OF THE NIGHT AND APPEARED TO BE IN DISTRESS. BREATHING WAS SHALLOW AND TACHY AVG 20'S. ON 2LPM NC WITH O2 SATS IN THE HIGH 90'S, FREQUENT EPISODES OF DRY COUGHING, WITH CHEST DISCOMFORT. PT STATED BEING UNABLE TO TAKE DEEP BREATHS DUE TO WEAKNESS. VITALS SHOWED A LOW GRADE FEVER 99-100F T/O THE NIGHT, PULLED OFF SOME COVERS AND LOWERED TEMP OF ROOM. BP WAS 120-140'S SYSTOLIC AND HR LOW 100'S. PT DENIED PM STOOL SOFTENERS, HAD TWO LOOSE STOOLS THAT SHOWED SMALL RED/PINK FLEKS IN DARK BROWN STOOL, NOT OCCULT LOOKING. MORNING LABS SHOWED HGB 6.7 DOWN FROM 9.4 THE PREVIOUS DAY. ONE PRBC ORDERED. WHEN UP TO SIDE OF BED OR AMBULATING, PT STATES FEELING DIZZY AND LIGHT HEADED, MORE SO WHEN SHE FIRST SITS UP. PT AWAKE AND WATCHING TV, WILL CONTINUE TO MONITOR UNTIL SHIFT CHANGE.
--- NOTE | 2020-06-07 07:14 | NUR ---
BROUGHT INTO SDS ADMISSION TO UNIT STARTED. BLOOD RETRIEVED FROM
--- NOTE | 2020-06-07 07:15 | NUR ---
BLOOD RETRIEVED FROM LAB AND STARTED BY TWO NURSES. VS DONE FAST RR
--- NOTE | 2020-06-07 08:15 | NUR ---
06/07/20 0815 Lotus Jacob [id number] PATIENT CONFIRMS NPO STATUS AND AGREES WITH SCHEDULED PROCEDURE. History, Chart, Medications and Allergies reviewed before start of procedure. MONITOR INTACT WITH CONTINUOUS PULSE OXIMETRY AND INTERMITTENT BP.O2 VIA N/C INTACT THROUGHOUT SEDATION/PROCEDURE. 3-LEAD EKG REVIEWED WITH PHYSICIAN PRIOR TO START OF PROCEDURE. Bite Block Placed. BLOOD TRANSFUSING. PT STATES THERE IS NO WAY SHE COULD BE AND THAT SHE IS UNABLE TO VOID. DR. LIMON AND DR. ALTMAN INFORMED AND STATED OK TO PROCEDE DUE TO EMERGNET NATURE OF PROCEDURE. PT SIGNED REFUSAL FORM. BLOOD INFUSTING.
--- NOTE | 2020-06-07 08:46 | NUR ---
UPDATE: PT HAD A BLOOD TRANSFUSION REACTION WITHIN THE FIRST 20MIN OF TRANSFUSION. BLOOD WAS STOPPED AND SYMPTOMS TREATED PER DR. LIMON. BLOOD REACTION PROTOCOL FOLLOWED AND PRIMARY PHYSICIAN NOTIFIED OF REACTION. PT BACK IN ROOM PCU8 FOLLOWING EGD. WILL CONTINUE TO MONITOR AND TREAT.
--- NOTE | 2020-06-07 09:39 | NUR ---
PATIENT RETURNED FROM EGD, PATIENT ENDORSES NOT FEELING WELL, BUT DENIES CHEST PAIN AND GENERAL PAIN. NEW ORDER TO LASIZ ADMINISTERED, NO SIGNS OF ACUTE DISTRESS, TEMP REMAINS ELEVATED AT 100.8. WCTM.
[2020-06-07 11:09] LABS: Hematocrit 24.8 % (33.0-51.0); Hemoglobin 8.2 g/dL (11.5-16.0)
[2020-06-07 11:30] LABS: Bilirubin, Direct 0.2 mg/dL (0.0-0.3); Bilirubin, Total 0.6 mg/dL (0.1-1.0)
[2020-06-07 12:20] LABS: Source, Urine Voided
[2020-06-07 12:26] LABS: Appearance, Urine Clear (Clear); Bilirubin, Urine Neg (Neg); Blood, Urine 5+ (Neg); Color, Urine Yellow (P-Yellow); Glucose Qualitative, Urine Neg (Neg); Ketones, Urine Neg (Neg); Leukocyte Esterase, Urine 1+ (Neg); Nitrite, Urine Neg (Neg); Protein, Urine Neg (Neg); Urobilinogen, Urine NORM (Normal)
[2020-06-07 12:54] LABS: Bacteria Mod /hpf; Squamous Epithelial Cells Few /hpf (Few)
--- NOTE | 2020-06-07 15:00 | NUR ---
ASSUMED CARE ASSUMED PT CARE AT 1500.
--- NOTE | 2020-06-07 18:06 | NUR ---
SHIFT SUMMARY PT ALERT AND ORIENTED. HR STABLE. BP STABLE. PT REPORTS NO CP OR PRESSURE. PT TO BE COBRA TRANSFERRED TO [facility] WHEN A BED BECOMES AVAILABLE. OXYGEN SATURATION MAINTAINED ABOVE 92% ON 3 L OF OXYGEN VIA NC. WILL CONTINUE TO MONITOR UNTIL REPORT GIVEN TO NIGHTSHIFT RN.
--- NOTE | 2020-06-07 21:37 | NUR ---
COBRA TRANSFER PT WAS DISCHARED FROM PCU AT APPROX 2125 VIA STRETCHER, ACCOMPANIED BY TRANSFER TEAM, TO TRANSFER TO [facility]. PT A&OX4. TELEMETRY READS ST, HR 115. SP02 >94% ON 3L NC. PT AMBULATED TO RESTROOM PRIOR TO DISCHARGE WITH ASSISTANCE. PT WAS WEAK UPON AMBULATION, SOB UPON EXERTION. PT DENIED PAIN. PT HAD RECEIVED HER 1999 ANTIBIOTIC PER EMAR. POWERGLIDE WAS THEN SALINE LOCKED. ALL OF PT'S BELONGINGS WERE PLACED WITH PT ON STRETCHER. PT NOTIFIED HER OF TRANSFER. GAVE REPORT TO [place] NURSE RECEIVING PT.
== END 2020-06-07 21:27 | disposition short-term general hospital (02) | DRG 871 ==
LOC: ER 14:34 → PCU 06-01 00:07
PROVIDERS: Family Medicine; Internal Medicine; Internal Medicine Gastroenterology; Physician Assistant; Student in an Organized Health Care Education/Training Program; ADMIT Internal Medicine
PROC: 30233N1 Transfusion of Nonautologous Red Blood Cells into Peripheral Vein, Percutaneous Approach (ICD-10-PCS; 2020-06-04)
PROC: 0DJ08ZZ Inspection of Upper Intestinal Tract, Via Natural or Artificial Opening Endoscopic (ICD-10-PCS; principal; 2020-06-07 07:30)
DX: A41.01 Sepsis due to Methicillin susceptible Staphylococcus aureus (principal); J18.9 Pneumonia, unspecified organism; I26.90 Septic pulmonary embolism without acute cor pulmonale; N17.9 Acute kidney failure, unspecified; E87.1 Hypo-osmolality and hyponatremia; Z68.42 Body mass index [BMI] 45.0-49.9, adult; K22.10 Ulcer of esophagus without bleeding; B37.81 Candidal esophagitis; Z20.828 Contact with and (suspected) exposure to other viral communicable diseases; R65.20 Severe sepsis without septic shock; E87.6 Hypokalemia; E88.09 Other disorders of plasma-protein metabolism, not elsewhere classified; E86.0 Dehydration; E66.01 Morbid (severe) obesity due to excess calories; R74.01 Elevation of levels of liver transaminase levels; D69.6 Thrombocytopenia, unspecified; D50.9 Iron deficiency anemia, unspecified; I07.9 Rheumatic tricuspid valve disease, unspecified; D63.8 Anemia in other chronic diseases classified elsewhere; T80.92XA Unspecified transfusion reaction, initial encounter
CPT/HCPCS: 0202U; 36415; 36430; 51702; 71045; 71046; 71260; 74177; 80053; 80069; 80202; 81001; 82247; 82248; 82270; 82274; 82330; 82728; 83010; 83540; 83550; 83605; 83735; 83880; 84100; 84145; 84443; 84484; 85014; 85018; 85025; 85027; 85610; 85651; 85730; 86140; 86850; 86900; 86901; 86923; 87040; 87070; 87077; 87086; 87147; 87186; 87205; 87493; 87804; 93005; 93010; 93306; 93308; 93321; 96361-59; 96367; 96374-59; 96375-59; 99285-25; A9270; C9113; J0696; J1940; J2405; J2543; J2700; J2704; J3370; J3480; J7030; J7040; J7050; J7120; P9016; P9046; Q2038; Q9967; U0004

== ENCOUNTER → 2020-06-26 | Outpatient (CLI) | payer SELFPAY ==
[2020-06-26 17:59] LABS: BASOPHILS PERCENT AUTO 1 % (0-2); EOSINOPHILS ABSOLUTE AUTO 0.36 K/mm3 (0.00-0.68); EOSINOPHILS PERCENT AUTO 3 % (0-6); IMMATURE GRAN ABSOLUTE AUTO 0.21 K/mm3 (0.00-0.10); IMMATURE GRAN PERCENT AUTO 2 % (0-1); LYMPHOCYTES ABSOLUTE AUTO 2.13 K/mm3 (0.84-5.20); LYMPHOCYTES PERCENT AUTO 16 % (21-46); MONOCYTES ABSOLUTE AUTO 0.58 K/mm3 (0.16-1.47); MONOCYTES PERCENT AUTO 4 % (4-13); Mean Corpuscular HGB 28.1 pg (26.0-34.0); Mean Corpuscular HGB Conc 30.4 g/dL (31.5-36.5); Mean Corpuscular Volume 92 fL (80-100); Mean Platelet Volume 9.5 fL (9.1-12.4); NEUTROPHILS ABSOLUTE AUTO 10.09 K/mm3 (1.96-9.15); NEUTROPHILS PERCENT AUTO 75 % (41-73); Platelet Count 394 K/mm3 (150-400); RDW Coefficient Variation 21.2 % (11.7-14.2); RDW Standard Deviation 67.4 fL (35.1-46.3); Red Blood Cell Count 2.49 M/mm3 (3.80-5.20); White Blood Cell Count 13.47 K/mm3 (4.00-11.30)
[2020-06-26 20:16] LABS: Alanine Aminotransfer (ALT/SGP 9 U/L (12-78); Albumin, Blood 1.7 g/dL (3.4-5.0); Albumin/Globulin Ratio 0.3 (0.8-1.8); Alk Phos 64 U/L (50-136); Anion Gap 9 mmol/L (6-16); Aspartate Aminotrans (AST/SGOT 18 U/L (12-37); Bilirubin, Total 0.8 mg/dL (0.1-1.0); Blood Urea Nitrogen 11 mg/dL (8-24); Bun/Creatinine Ratio 11.4 (12.0-20.0); CO2, Blood 25 mmol/L (21-32); Calcium, Blood 8.2 mg/dL (8.5-10.1); Chloride, Blood 107 mmol/L (98-108); Creatinine, Blood 0.97 mg/dL (0.40-1.00); Globulin, Blood 6.3 g/dL (2.2-4.0); Glomerular Filtration Rate >60 (60-); Glucose, Blood 93 mg/dL (70-99); Potassium, Blood 2.5 mmol/L (3.5-5.5); Sodium, Blood 141 mmol/L (136-145)
== END | disposition home or self-care (01) ==
LOC: LAB SHORT 17:25 → LAB UCHC 17:25
PROVIDERS: Internal Medicine Infectious Disease
DX: A41.01 Sepsis due to Methicillin susceptible Staphylococcus aureus (principal)
CPT/HCPCS: 80053; 85025; 85651; 86140

== ENCOUNTER → 2020-07-03 | Outpatient (CLI) | payer SELFPAY ==
[2020-07-03 17:38] LABS: BASOPHILS ABSOLUTE AUTO 0.09 K/mm3 (0.00-0.23); BASOPHILS PERCENT AUTO 1 % (0-2); EOSINOPHILS ABSOLUTE AUTO 0.26 K/mm3 (0.00-0.68); EOSINOPHILS PERCENT AUTO 4 % (0-6); Hematocrit 27.5 % (33.0-51.0); Hemoglobin 8.7 g/dL (11.5-16.0); IMMATURE GRAN ABSOLUTE AUTO 0.11 K/mm3 (0.00-0.10); IMMATURE GRAN PERCENT AUTO 2 % (0-1); LYMPHOCYTES ABSOLUTE AUTO 2.34 K/mm3 (0.84-5.20); LYMPHOCYTES PERCENT AUTO 33 % (21-46); MONOCYTES ABSOLUTE AUTO 0.38 K/mm3 (0.16-1.47); MONOCYTES PERCENT AUTO 5 % (4-13); Mean Corpuscular HGB 29.1 pg (26.0-34.0); Mean Corpuscular HGB Conc 31.6 g/dL (31.5-36.5); Mean Corpuscular Volume 92 fL (80-100); Mean Platelet Volume 9.4 fL (9.1-12.4); NEUTROPHILS ABSOLUTE AUTO 3.83 K/mm3 (1.96-9.15); NEUTROPHILS PERCENT AUTO 55 % (41-73); Platelet Count 432 K/mm3 (150-400); RDW Coefficient Variation 22.6 % (11.7-14.2); RDW Standard Deviation 73.3 fL (35.1-46.3); Red Blood Cell Count 2.99 M/mm3 (3.80-5.20); White Blood Cell Count 7.01 K/mm3 (4.00-11.30)
[2020-07-03 18:32] LABS: Alanine Aminotransfer (ALT/SGP 10 U/L (12-78); Albumin, Blood 1.8 g/dL (3.4-5.0); Albumin/Globulin Ratio 0.3 (0.8-1.8); Alk Phos 70 U/L (50-136); Anion Gap 8 mmol/L (6-16); Aspartate Aminotrans (AST/SGOT 21 U/L (12-37); Bilirubin, Total 0.8 mg/dL (0.1-1.0); Blood Urea Nitrogen 12 mg/dL (8-24); Bun/Creatinine Ratio 12.7 (12.0-20.0); CO2, Blood 31 mmol/L (21-32); Calcium, Blood 8.2 mg/dL (8.5-10.1); Chloride, Blood 102 mmol/L (98-108); Creatinine, Blood 0.95 mg/dL (0.40-1.00); Glomerular Filtration Rate >60 (60-); Glucose, Blood 84 mg/dL (70-99); Sodium, Blood 141 mmol/L (136-145); Total Protein, Blood 7.8 g/dL (6.4-8.2)
[2020-07-03 19:13] LABS: Potassium, Blood 2.2 mmol/L (3.5-5.5)
== END | disposition home or self-care (01) ==
LOC: LAB 16:35 → LAB SHORT 16:35 → EDBD 16:35
PROVIDERS: Internal Medicine Infectious Disease
DX: A41.01 Sepsis due to Methicillin susceptible Staphylococcus aureus (principal)
CPT/HCPCS: 80053; 85025; 85651; 86140

== ENCOUNTER 2020-07-11 00:23 | Emergency (ER) | payer SELFPAY ==
[~2020-07-11] VITALS: Ht 152.4 cm; Wt 124.7 kg
[2020-07-11 01:19] LABS: BASOPHILS ABSOLUTE AUTO 0.08 K/mm3 (0.00-0.23); BASOPHILS PERCENT AUTO 1 % (0-2); EOSINOPHILS ABSOLUTE AUTO 0.23 K/mm3 (0.00-0.68); EOSINOPHILS PERCENT AUTO 4 % (0-6); Hemoglobin 8.1 g/dL (11.5-16.0); IMMATURE GRAN ABSOLUTE AUTO 0.05 K/mm3 (0.00-0.10); IMMATURE GRAN PERCENT AUTO 1 % (0-1); LYMPHOCYTES ABSOLUTE AUTO 2.06 K/mm3 (0.84-5.20); LYMPHOCYTES PERCENT AUTO 33 % (21-46); MONOCYTES ABSOLUTE AUTO 0.37 K/mm3 (0.16-1.47); MONOCYTES PERCENT AUTO 6 % (4-13); Mean Corpuscular HGB 29.2 pg (26.0-34.0); Mean Corpuscular HGB Conc 31.2 g/dL (31.5-36.5); Mean Corpuscular Volume 94 fL (80-100); Mean Platelet Volume 8.9 fL (9.1-12.4); NEUTROPHILS ABSOLUTE AUTO 3.44 K/mm3 (1.96-9.15); NEUTROPHILS PERCENT AUTO 55 % (41-73); Platelet Count 428 K/mm3 (150-400); RDW Coefficient Variation 22.5 % (11.7-14.2); RDW Standard Deviation 75.7 fL (35.1-46.3); Red Blood Cell Count 2.77 M/mm3 (3.80-5.20); White Blood Cell Count 6.23 K/mm3 (4.00-11.30)
[2020-07-11 01:42] LABS: Alanine Aminotransfer (ALT/SGP 13 U/L (12-78); Albumin, Blood 1.8 g/dL (3.4-5.0); Albumin/Globulin Ratio 0.3 (0.8-1.8); Alk Phos 79 U/L (50-136); Anion Gap 5 mmol/L (6-16); Aspartate Aminotrans (AST/SGOT 14 U/L (12-37); Blood Urea Nitrogen 9 mg/dL (8-24); Bun/Creatinine Ratio 8.7 (12.0-20.0); CO2, Blood 32 mmol/L (21-32); Calcium, Blood 8.2 mg/dL (8.5-10.1); Chloride, Blood 105 mmol/L (98-108); Creatinine, Blood 1.04 mg/dL (0.40-1.00); Globulin, Blood 5.9 g/dL (2.2-4.0); Glomerular Filtration Rate >60 (60-); Glucose, Blood 106 mg/dL (70-99); Potassium, Blood 2.5 mmol/L (3.5-5.5); Sodium, Blood 142 mmol/L (136-145); Total Protein, Blood 7.7 g/dL (6.4-8.2)
== END 2020-07-11 06:23 | disposition home or self-care (01) ==
LOC: ER 00:23
PROVIDERS: Emergency Medicine
DX: E87.6 Hypokalemia (principal); T50.2X5A Adverse effect of carbonic-anhydrase inhibitors, benzothiadiazides and other diuretics, initial encounter; Z86.79 Personal history of other diseases of the circulatory system; Z79.2 Long term (current) use of antibiotics; Z88.5 Allergy status to narcotic agent
CPT/HCPCS: 80053; 83735; 85025; 96365; 96366; 99283-25; A9270; J3480

== ENCOUNTER → 2020-07-17 | Outpatient (CLI) | payer SELFPAY ==
[2020-07-17 17:17] LABS: Albumin, Blood 1.7 g/dL (3.4-5.0); Albumin/Globulin Ratio 0.3 (0.8-1.8); Bilirubin, Total 0.9 mg/dL (0.1-1.0); Bun/Creatinine Ratio 8.1 (12.0-20.0); C-REACTIVE PROTEIN, EXT RANGE 2.45 mg/dL (0.000-0.300); Calcium, Blood 9.2 mg/dL (8.5-10.1); Creatinine, Blood 1.35 mg/dL (0.40-1.00); Globulin, Blood 5.6 g/dL (2.2-4.0); Potassium, Blood 4.4 mmol/L (3.5-5.5); Total Protein, Blood 7.3 g/dL (6.4-8.2)
[2020-07-17 18:02] LABS: Hemoglobin 8.1 g/dL (11.5-16.0); Mean Corpuscular HGB 29.1 pg (26.0-34.0); Mean Corpuscular Volume 97 fL (80-100); Mean Platelet Volume 9.1 fL (9.1-12.4); Platelet Count 537 K/mm3 (150-400); RDW Coefficient Variation 21.9 % (11.7-14.2); RDW Standard Deviation 76.6 fL (35.1-46.3); Red Blood Cell Count 2.78 M/mm3 (3.80-5.20); White Blood Cell Count 5.02 K/mm3 (4.00-11.30)
== END | disposition home or self-care (01) ==
LOC: LAB SHORT 14:15 → LAB 14:15
PROVIDERS: Internal Medicine Infectious Disease
DX: A41.01 Sepsis due to Methicillin susceptible Staphylococcus aureus (principal)
CPT/HCPCS: 80053; 85027; 85651; 86140

== ENCOUNTER 2022-07-09 17:48 | Emergency (ER) | payer SELFPAY ==
[~2022-07-09] VITALS: Ht 165.1 cm; Wt 136.1 kg
[2022-07-09] MEDS ORDERED: ALBU90OI INH (18:31)
[2022-07-09] MEDS ORDERED: PRED20 PO (18:31)
[2022-07-09 19:14] LABS: Influenza A, PCR NEGATIVE (NEGATIVE); Influenza B, PCR NEGATIVE (NEGATIVE); Resp Syncytial Virus, PCR POSITIVE (NEGATIVE); SARS-Cov-2 (COVID-19) PCR, MMC NEGATIVE (NEGATIVE)
== END 2022-07-09 18:30 | disposition home or self-care (01) ==
LOC: ER 17:48
PROVIDERS: Physician Assistant
DX: J06.9 Acute upper respiratory infection, unspecified (principal); B97.4 Respiratory syncytial virus as the cause of diseases classified elsewhere; Z20.822 Contact with and (suspected) exposure to COVID-19; Z88.5 Allergy status to narcotic agent; Z79.899 Other long term (current) drug therapy
CPT/HCPCS: 0241U

== ENCOUNTER → 2025-05-03 | Outpatient (CLI) | payer OTHER ==
[2025-05-03 17:49] LABS: BASOPHILS ABSOLUTE AUTO 0.06 K/mm3 (0.00-0.23); BASOPHILS PERCENT AUTO 1 % (0-2); EOSINOPHILS ABSOLUTE AUTO 0.26 K/mm3 (0.00-0.68); EOSINOPHILS PERCENT AUTO 3 % (0-6); Hematocrit 40.5 % (33.0-51.0); Hemoglobin 13.2 g/dL (11.5-16.0); IMMATURE GRAN ABSOLUTE AUTO 0.06 K/mm3 (0.00-0.10); IMMATURE GRAN PERCENT AUTO 1 % (0-1); LYMPHOCYTES ABSOLUTE AUTO 3.26 K/mm3 (0.84-5.20); LYMPHOCYTES PERCENT AUTO 32 % (21-46); MONOCYTES ABSOLUTE AUTO 0.45 K/mm3 (0.16-1.47); MONOCYTES PERCENT AUTO 4 % (4-13); Mean Corpuscular HGB Conc 32.6 g/dL (31.5-36.5); Mean Corpuscular Volume 92 fL (80-100); NEUTROPHILS ABSOLUTE AUTO 6.19 K/mm3 (1.96-9.15); NEUTROPHILS PERCENT AUTO 60 % (41-73); NRBC ABSOLUTE 0.00 K/mm3 (0.00-0.02); NRBC Auto 0.0 /100 WBC (0.0-0.2); Platelet Count 389 K/mm3 (150-400); RDW Coefficient Variation 13.8 % (11.7-14.2); RDW Standard Deviation 46.9 fL (35.1-46.3)
[2025-05-03 20:31] LABS: C-REACTIVE PROTEIN, EXT RANGE 0.428 mg/dL (0.000-0.300)
[2025-05-03 20:32] LABS: Alanine Aminotransfer (ALT/SGP 33.0 U/L (12-78); Albumin, Blood 4.0 g/dL (3.4-5.0); Albumin/Globulin Ratio 1.0 (0.8-1.8); Anion Gap 10.0 mmol/L (3-11); Aspartate Aminotrans (AST/SGOT 20.0 U/L (12-37); Bilirubin, Total 0.4 mg/dL (0.1-1.0); Blood Urea Nitrogen 22.0 mg/dL (8-24); CO2, Blood 24.0 mmol/L (21-32); Calcium, Blood 9.4 mg/dL (8.5-10.1); Chloride, Blood 106.0 mmol/L (98-108); Creatinine, Blood 0.89 mg/dL (0.40-1.00); Globulin, Blood 4.1 g/dL (2.2-4.0); Glucose, Blood 94.0 mg/dL (70-99); Potassium, Blood 3.7 mmol/L (3.5-5.5); Sodium, Blood 136.0 mmol/L (136-145); Total Protein, Blood 8.1 g/dL (6.4-8.2)
[2025-05-03 21:20] LABS: CHOL/HDL RATIO 2.8; Cholesterol 162 mg/dL (50-200); HDL Cholesterol 58 mg/dL (>39); LDL Direct Measurement 97 mg/dL (0-130); LDL/HDL RATIO 1.5; Low Density Lipoprotein Chol 84 mg/dL (0-110); Triglycerides 98 mg/dL (30-160); Very Low Density Lipoprot Chol 19 mg/dL (6-32)
[2025-05-05 09:34] LABS: HEPATITIS C AB CIA INTERP Negative (Negative); HEPATITIS C ANTIBODY CIA INDEX <0.02 IV
[2025-05-06 12:15] LABS: HIV 1,2 COMBO ANTIGEN/ANTIBODY Negative
== END ==
LOC: LAB 16:13 → LAB SHORT 16:13
PROVIDERS: Family Medicine
DX: Z11.4 Encounter for screening for human immunodeficiency virus [HIV] (principal); Z11.59 Encounter for screening for other viral diseases; M79.7 Fibromyalgia; E66.09 Other obesity due to excess calories; I50.9 Heart failure, unspecified; E55.9 Vitamin D deficiency, unspecified; R05.3 Chronic cough
CPT/HCPCS: 80053; 80061; 82306; 83036; 83721; 85025; 85651; 86140; 86803; 87389